=== PATIENT | female | born 1990 | race Caucasian/White ===

== ENCOUNTER 2019-04-18 11:17 | Outpatient (CLI) | payer OTHER ==
[~2019-04-18] VITALS: Ht 167.6 cm; Wt 95.0 kg
[2019-04-18 12:42] VITALS: Ht 167.6 cm; Wt 95.0 kg
[2019-04-18 12:43] VITALS: BP 113/66; PULSE 76; RESP 18
[2019-04-18] MEDS ORDERED: PNV11TAB PO (12:47)
[2019-04-18] MEDS ORDERED: FOLI0.8C PO (12:47)
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
== END 2019-04-18 17:00 | disposition home or self-care (01) ==
LOC: OBT 11:17 → L-D 11:18 → OBT 17:00
PROVIDERS: ATTEND Obstetrics & Gynecology
DX: O9A.212 Injury, poisoning and certain other consequences of external causes complicating pregnancy, second trimester (principal); R10.2 Pelvic and perineal pain; V49.9XXA Car occupant (driver) (passenger) injured in unspecified traffic accident, initial encounter; Y92.410 Unspecified street and highway as the place of occurrence of the external cause; Z3A.20 20 weeks gestation of pregnancy
CPT/HCPCS: 76817; 81001; Z7500; 81003; G0463